=== PATIENT | female | born 1960 | race African-American/Black ===

== ENCOUNTER 2017-11-30 11:11 | Day surgery (SDC) | payer MEDICAID ==
[~2017-11-30] VITALS: Ht 149.9 cm; Wt 95.3 kg
[2017-11-30] MEDS ORDERED: LACTATED RINGERS 1,000 ML IV SCH (12:30)
[2017-11-30 12:58] LABS: UCG SCREEN NEGATIVE
[2017-11-30] MEDS ORDERED: PROPOFOL 200MG/20ML VIAL IV ONE (13:21)
[2017-11-30] MEDS ORDERED: FENTANYL CITRATE/PF 50MCG/ML 2ML VIAL ONE (13:22)
[2017-11-30] MEDS ORDERED: MIDAZOLAM HCL 2 MG/2 ML VIAL ONE (13:34)
[2017-11-30] MEDS ORDERED: LIDOCAINE HCL/PF 1% 10 MG/ML 5ML VIAL ONE (13:37)
[2017-11-30] MEDS ORDERED: ROCURONIUM BROMIDE 10MG/ML VIAL 5ML IV ONE (13:38)
[2017-11-30] MEDS ORDERED: METOCLOPRAMIDE HCL 10MG/2ML VIAL ONE (13:41)
[2017-11-30] MEDS ORDERED: ONDANSETRON HCL 4MG/2ML VIAL ONE (13:41)
[2017-11-30] MEDS ORDERED: EPHEDRINE SULFATE 50MG/ML VIAL ONE (13:41)
[2017-11-30] MEDS ORDERED: CEFAZOLIN SODIUM 1000MG/VIAL ONE (14:27)
[2017-11-30] MEDS ORDERED: KETOROLAC 30MG/ML VIAL ONE (14:29)
[2017-11-30] MEDS ORDERED: SIMV20TA6 PO (14:32)
[2017-11-30] MEDS ORDERED: ASPI-1159 PO (14:32)
[2017-11-30] MEDS ORDERED: FLUO-124 PO (14:32)
[2017-11-30] MEDS ORDERED: CLAR10 PO (14:32)
[2017-11-30] MEDS ORDERED: AMLO5TAB88 PO (14:32)
[2017-11-30] MEDS ORDERED: HYDR-4001 PO (14:32)
[2017-11-30] MEDS ORDERED: MEPERIDINE HCL/PF 25MG/ML CPJ IV PRN (15:15)
[2017-11-30] MEDS ORDERED: MORPHINE SULFATE 4 MG/ML CPJ (NOT FOR IM USE) IV PRN (15:15)
[2017-11-30] MEDS ORDERED: TERBUTALINE SULFATE 1MG/ML VIAL ONE (16:00)
== END 2017-11-30 17:30 | disposition home or self-care (01) ==
LOC: OR 11:11
PROVIDERS: ATTEND Obstetrics & Gynecology
DX: N84.1 Polyp of cervix uteri (principal); D25.9 Leiomyoma of uterus, unspecified; N72 Inflammatory disease of cervix uteri; Z79.899 Other long term (current) drug therapy; I10 Essential (primary) hypertension; E78.00 Pure hypercholesterolemia, unspecified; E66.01 Morbid (severe) obesity due to excess calories; F41.8 Other specified anxiety disorders; K21.9 Gastro-esophageal reflux disease without esophagitis; Z87.891 Personal history of nicotine dependence; Z88.1 Allergy status to other antibiotic agents; Z68.42 Body mass index [BMI] 45.0-49.9, adult; F32.89 Other specified depressive episodes; Z79.82 Long term (current) use of aspirin
CPT/HCPCS: 58558; 81025; 88305; J0690; J1885; J2250; J2405; J2765; J3010; J3105; J3490; J7120; J2704